=== PATIENT | female | born 1975 | race Caucasian/White ===

== ENCOUNTER 2021-03-22 14:15 | Emergency (ER) | payer OTHER ==
[2021-03-22] MEDS ORDERED: solu-MEDROL 125 MG, Sterile H2O 10 ml 2 ML IV ONE ×2 (14:20)
[2021-03-22] MEDS ORDERED: BENADRYL 50 MG/ML IV ONE (14:20)
[2021-03-22] MEDS ORDERED: Sodium Chloride 0.9% 1000 ML 1,000 ML IV STA (14:20)
[2021-03-22] MEDS ORDERED: Pepcid 20 MG VIAL IV ONE (14:20)
[2021-03-22] MEDS ORDERED: DUONEB 0.5-3 MG/3 ml Neb IH ONE (14:21)
[2021-03-22] MEDS ORDERED: Racepinephrine INH Solution 2.25% IH ONE (14:22)
[2021-03-22] MEDS ORDERED: Sodium Chloride 0.9% 1000 ML 1,000 ML ONE ×2 (14:37→19:52)
--- NOTE | 2021-03-22 14:46 | XRAY ---
Indication: Short of breath. Comparison: None Chest demonstrates normal heart and lungs with incidental tiny right base calcified granuloma. Bony thorax intact with mild degenerative changes.
[2021-03-22 14:50] LABS: Absolute Neutrophil Ct (ANC) 10.63 (1.4-6.9); BASOPHIL % 0.2 % (0.0-0.4); Basophil (Absolute #) 0.03 (0-0.4); Eosinophil % 0.8 % (0.00-5.0); Eosinophil (Absolute #) 0.13 (0-0.5); Hematocrit 41.9 % (35-47); Hemoglobin 13.3 gm/dl (12.0-16.0); Lymphocytes % 19.1 % (24.0-44.0); Mean Cell Volume 99.8 fl (78-100); Mean Corpuscular Hemoglobin 31.7 pg (26-32); Mean Corpuscular Hgb Concent. 31.7 g/dl (32-36); Mean Platelet Volume 10.7 fl (7.5-11.0); Monocyte (Absolute #) 1.88 (0.0-1.3); Neutrophil % 67.9 % (36.0-66.0); Platelet Count 282 K/mm3 (150-450); Red Cell Distribution Width 14.6 % (11.5-14.0); White Blood Count 15.7 K/mm3 (4.0-10.5)
[2021-03-22 15:03] LABS: ALBUMIN 4.5 g/dL (3.5-5.0); ALKALINE PHOSPHATASE 122 U/L (38-126); ANION GAP 17.7 MEQ/L (5-15); BLOOD UREA NITROGEN 12 mg/dL (7-17); CHLORIDE 104 mmol/L (98-107); Calcium 10.4 mg/dL (8.4-10.2); Carbon Dioxide 20 mmol/L (22-30); Creatinine 1 0.88 mg/dL (0.52-1.04); EST GLOMERULAR FILTRATION RATE > 60.0 ML/MIN; Glucose 136 mg/dL (74-106); Potassium 3.8 mmol/L (3.5-5.1); SGOT/AST 28 U/L (14-36); SGPT/ALT 16 U/L (0-35); SODIUM 138 mmol/L (137-145); Total Protein 7.6 g/dL (6.3-8.2)
--- NOTE | 2021-03-22 15:50 | ERPHSYRPT ---
- History of Present Illness Time Seen by Provider: 03/22/21 14:20 Source: patient Exam Limitations: no limitations Patient Subjective Stated Complaint: difficulty breathing and swallowing, pt went to clinic 3 days ago and was given some medication and today she states moraima t her throat is swollen Triage Nursing Assessment: Pt brought to the ER by her boyfriend, hypertensive, tachycardic, rates pain as 9/10 in her chest and neck, pulses normal, skin n/w/d, wheezing, difficulty speaking, breathing and swallowing Physician History: 45 years old female with history of tobacco abuse, COPD/asthma, hypertension presented in the ER with chief complaint of worsening shortness of breath for 2 days. Patient reports she was having sore throat 2 days ago and was evaluated outpatient, given albuterol inhaler and cough congestion medication and seems like her throat is more swollen with more congestion and having moderate to severe difficulty breathing because of throat closing sensation since morning. Patient is in mild to moderate distress on presentation and very anxious. Bilateral wheezing. Denies any tongue swelling or history of angioedema Timing/Duration: day(s) (3), constant, gradual onset, worse Activities at Onset: rest Severity of Dyspnea-Max: severe Severity of Dyspnea-Current: severe Associated Symptoms: cough, wheezing, painful breathing, tightness, No chest pain/discomfort Allergies/Adverse Reactions: No Known Drug Allergies Allergy (Verified 03/22/21 14:28) Home Medications: Albuterol 8 gm Mdi Hfa [Ventolin Hfa MDI] 18 gm IH .PRN 11/15/16 [History] Amlodipine Besylate 5 mg [Norvasc 5 mg] 5 mg PO DAILY 03/22/21 [History] Travel Risk - International Travel Have you traveled outside of the country in past 3 weeks: No - Coronavirus Screening Are you exhibiting any of the following symptoms?: No Close contact with a COVID-19 positive Pt in past 14-21 Days: No - Vaccine Status Have you recieved a Covid-19 vaccination: No - Review of Systems Constitutional: No Symptoms Eyes: No Symptoms Ears, Nose, & Throat: Nose Congestion, Sinus Drainage, Throat Pain, Throat Swelling, Painful Swallowing, Stridor Respiratory: Cough, Dyspnea, Stridor, Wheezing Cardiac: No Symptoms Abdominal/Gastrointestinal: No Symptoms Genitourinary Symptoms: No Symptoms Musculoskeletal: No Symptoms Skin: No Symptoms Neurological: No Symptoms Psychological: No Symptoms Endocrine: No Symptoms Hematologic/Lymphatic: No Symptoms Immunological/Allergic: No Symptoms - Past Medical History Pertinent Past Medical History: Yes Respiratory History: Asthma, COPD GI Medical History: Diverticulitis - Past Surgical History Past Surgical History: Yes Female Surgical History: Hysterectomy Other Surgical History: 3 back and neck surgeries - Social History Smoking Status: Current every day smoker Exposure to second hand smoke: Yes Drug Use: marijuana Patient Lives Alone: No - Female History Hx Now: (unkn) - Nursing Vital Signs Nursing Vital Signs: Initial Vital Signs Pulse Rate 116 H 03/22/21 14:15 Respiratory Rate 22 03/22/21 14:15 O2 Sat by Pulse Oximetry 100 03/22/21 14:15 Pain Scale Pain Intensity 0 - Physical Exam General Appearance: moderate distress, alert, anxiety Eye Exam: PERRL/EOMI, eyes nml inspection Ears, Nose, Throat Exam: sinus pain/drainage, pharyngeal erythema Neck Exam: normal inspection, full range of motion, lymphadenopathy (R), lymphadenopathy (L), No tenderness midline Respiratory Exam: wheezing, stridor Cardiovascular/Chest Exam: normal heart sounds, tachycardia Abdominal/Gastrointestinal Exam: soft, normal bowel sounds Extremity Exam: non-tender, normal range of motion Neurologic Exam: alert, oriented x 3, cooperative Skin Exam: normal color Lymphatic Exam: adenopathy SpO2 Interpretation: normal SpO2: 95 O2 Delivery: Room Air - Course EKG Interpreted by Me: RATE ([id number]), Sinus Tach, NORMAL AXIS, NORMAL INTERVALS, Non-specific ST Changes (Nonspecific T wave changes) Ordered Tests: Active Orders 24 hr Category Date Time Status Solution Design Engineer STAT Care 03/22/21 14:20 Active EKG-ER Only STAT Care 03/22/21 14:20 Active IV Insertion STAT Care 03/22/21 14:20 Active NPO (ED) STAT Care 03/22/21 18:30 Active Oxygen-ED Only Nasal Cannula 2 lpm Care 03/22/21 14:20 Active CHEST 1 VIEW (PORTABLE) Stat Exams 03/22/21 14:20 Completed NECK WITH CONTRAST [CT] Stat Exams 03/22/21 14:54 Completed CBC W DIFF Stat Lab 03/22/21 14:40 Completed CMP Stat Lab 03/22/21 14:40 Completed CULTURE,URINE Stat Lab 03/22/21 15:52 Received TROPONIN Q3H Lab 03/22/21 14:40 Completed TROPONIN Q3H Lab 03/22/21 18:06 Completed TROPONIN Q3H Lab 03/22/21 20:30 Ordered TROPONIN Q3H Lab 03/22/21 23:30 Ordered TROPONIN Q3H Lab 03/23/21 02:30 Ordered UA W/RFX UR CULTURE Stat Lab 03/22/21 15:52 Completed Respiratory Therapy Assessment ONCE RT 03/22/21 14:51 Active Medication Summary Generic Name Dose Route Start Last Admin Trade Name Freq PRN Reason Stop Dose Admin Ceftazidime 2 g/ Dextrose 100 mls @ 200 mls/hr 03/22/21 18:30 IV 04/21/21 18:29 Q8H AMANDA Sodium Chloride 1,000 mls @ 125 mls/hr 03/22/21 18:30 Sodium Chloride 0.9% 1000 Ml IV 04/21/21 18:29 .Q8H AMANDA Discontinued Medications Generic Name Dose Route Start Last Admin Trade Name Freq PRN Reason Stop Dose Admin Albuterol/Ipratropium 3 ml 03/22/21 14:21 03/22/21 14:50 Duoneb 0.5-3 Mg/3 Ml Neb IH 03/22/21 14:22 3 ml STAT ONE Administration Methylprednisolone Sodium 0 mg 03/22/21 14:20 03/22/21 14:45 Succinate 125 mg/ Sterile IV 03/22/21 14:21 125 mg Water 2 ml STAT ONE Administration Diphenhydramine HCl 25 mg 03/22/21 14:20 03/22/21 14:43 Benadryl 50 Mg/Ml IV 03/22/21 14:21 25 mg STAT ONE Administration Epinephrine 0.5 ml 03/22/21 14:22 03/22/21 14:51 Racepinephrine Inh Solution 2.25% IH 03/22/21 14:23 0.5 ml STAT ONE Administration Famotidine 20 mg 03/22/21 14:20 03/22/21 14:44 Pepcid 20 Mg Vial IV 03/22/21 14:21 20 mg STAT ONE Administration Sodium Chloride 1,000 mls @ 999 mls/hr 03/22/21 14:20 03/22/21 15:43 Sodium Chloride 0.9% 1000 Ml IV 03/22/21 15:20 Infused .Q1H1M STA Infusion Sodium Chloride Confirm 03/22/21 14:37 Sodium Chloride 0.9% 1000 Ml Administered 03/22/21 14:38 Dose 1,000 mls @ .ROUTE .K-MED ONE Lab/Rad Data: Laboratory Result Diagrams 03/22/21 14:40 03/22/21 14:40 Laboratory Results 03/22/21 03/22/21 03/22/21 Range/Units 18:06 16:44 15:52 WBC (4.0-10.5) K/mm3 RBC (4.1-5.4) M/mm3 Hgb (12.0-16.0) gm/dl Hct (35-47) % MCV (78-100) fl MCH (26-32) pg MCHC (32-36) g/dl RDW (11.5-14.0) % Plt Count (150-450) K/mm3 MPV (7.5-11.0) fl Gran % (36.0-66.0) % Eos # (Auto) (0-0.5) Absolute Lymphs (auto) (1.0-4.6) Absolute Monos (auto) (0.0-1.3) Lymphocytes % (24.0-44.0) % Monocytes % (0.0-12.0) % Eosinophils % (0.00-5.0) % Basophils % (0.0-0.4) % Absolute Granulocytes (1.4-6.9) Basophils # (0-0.4) Sodium (137-145) mmol/L Potassium (3.5-5.1) mmol/L Chloride (98-107) mmol/L Carbon Dioxide (22-30) mmol/L Anion Gap (5-15) MEQ/L BUN (7-17) mg/dL Creatinine (0.52-1.04) mg/dL Estimated GFR ML/MIN Glucose (74-106) mg/dL Calcium (8.4-10.2) mg/dL Total Bilirubin (0.2-1.3) mg/dL AST (14-36) U/L ALT (0-35) U/L Alkaline Phosphatase (38-126) U/L Troponin I < 0.012 (0.000-0.034) ng/mL Serum Total Protein (6.3-8.2) g/dL Albumin (3.5-5.0) g/dL Urine Color YELLOW (YELLOW) Urine Appearance CLEAR (CLEAR) Urine pH 7.0 (5-6) Ur Specific Marana 1.005 (1.005-1.025) Urine Protein NEGATIVE (Negative) Urine Ketones SMALL (NEGATIVE) Urine Blood MODERATE (0-5) Jose De Jesus/ul Urine Nitrite NEGATIVE (NEGATIVE) Urine Bilirubin NEGATIVE (NEGATIVE) Urine Urobilinogen NEGATIVE (0-1) mg/dL Ur Leukocyte Esterase LARGE (NEGATIVE) Urine WBC (Auto) 16-25 (0-5) /HPF Urine RBC (Auto) 0-2 (0-2) /HPF Urine Bacteria (Auto) RARE (NEGATIVE) /HPF Urine Mucus (Auto) SLIGHT (NEGATIVE) /HPF Urine Culture Reflexed YES (NO) Urine Glucose NEGATIVE (NEGATIVE) mg/dL SARS-CoV-2 (PCR) NEGATIVE (NEGATIVE) Group A Strep Antibody (NEGATIVE) Slides for Path Review 03/22/21 03/22/21 03/22/21 Range/Units 15:30 14:40 14:40 WBC (4.0-10.5) K/mm3 RBC (4.1-5.4) M/mm3 Hgb (12.0-16.0) gm/dl Hct (35-47) % MCV (78-100) fl MCH (26-32) pg MCHC (32-36) g/dl RDW (11.5-14.0) % Plt Count (150-450) K/mm3 MPV (7.5-11.0) fl Gran % (36.0-66.0) % Eos # (Auto) (0-0.5) Absolute Lymphs (auto) (1.0-4.6) Absolute Monos (auto) (0.0-1.3) Lymphocytes % (24.0-44.0) % Monocytes % (0.0-12.0) % Eosinophils % (0.00-5.0) % Basophils % (0.0-0.4) % Absolute Granulocytes (1.4-6.9) Basophils # (0-0.4) Sodium 138 (137-145) mmol/L Potassium 3.8 (3.5-5.1) mmol/L Chloride 104 (98-107) mmol/L Carbon Dioxide 20 L (22-30) mmol/L Anion Gap 17.7 H (5-15) MEQ/L BUN 12 (7-17) mg/dL Creatinine 0.88 (0.52-1.04) mg/dL Estimated GFR > 60.0 ML/MIN Glucose 136 H (74-106) mg/dL Calcium 10.4 H (8.4-10.2) mg/dL Total Bilirubin 0.60 (0.2-1.3) mg/dL AST 28 (14-36) U/L ALT 16 (0-35) U/L Alkaline Phosphatase 122 (38-126) U/L Troponin I < 0.012 (0.000-0.034) ng/mL Serum Total Protein 7.6 (6.3-8.2) g/dL Albumin 4.5 (3.5-5.0) g/dL Urine Color (YELLOW) Urine Appearance (CLEAR) Urine pH (5-6) Ur Specific Marana (1.005-1.025) Urine Protein (Negative) Urine Ketones (NEGATIVE) Urine Blood (0-5) Jose De Jesus/ul Urine Nitrite (NEGATIVE) Urine Bilirubin (NEGATIVE) Urine Urobilinogen (0-1) mg/dL Ur Leukocyte Esterase (NEGATIVE) Urine WBC (Auto) (0-5) /HPF Urine RBC (Auto) (0-2) /HPF Urine Bacteria (Auto) (NEGATIVE) /HPF Urine Mucus (Auto) (NEGATIVE) /HPF Urine Culture Reflexed (NO) Urine Glucose (NEGATIVE) mg/dL SARS-CoV-2 (PCR) (NEGATIVE) Group A Strep Antibody NOT DETECTED (NEGATIVE) Slides for Path Review 03/22/21 Range/Units 14:40 WBC 15.7 H (4.0-10.5) K/mm3 RBC 4.20 (4.1-5.4) M/mm3 Hgb 13.3 (12.0-16.0) gm/dl Hct 41.9 (35-47) % MCV 99.8 (78-100) fl MCH 31.7 (26-32) pg MCHC 31.7 L (32-36) g/dl RDW 14.6 H (11.5-14.0) % Plt Count 282 (150-450) K/mm3 MPV 10.7 (7.5-11.0) fl Gran % 67.9 H (36.0-66.0) % Eos # (Auto) 0.13 (0-0.5) Absolute Lymphs (auto) 3.00 (1.0-4.6) Absolute Monos (auto) 1.88 H (0.0-1.3) Lymphocytes % 19.1 L (24.0-44.0) % Monocytes % 12.0 (0.0-12.0) % Eosinophils % 0.8 (0.00-5.0) % Basophils % 0.2 (0.0-0.4) % Absolute Granulocytes 10.63 H (1.4-6.9) Basophils # 0.03 (0-0.4) Sodium (137-145) mmol/L Potassium (3.5-5.1) mmol/L Chloride (98-107) mmol/L Carbon Dioxide (22-30) mmol/L Anion Gap (5-15) MEQ/L BUN (7-17) mg/dL Creatinine (0.52-1.04) mg/dL Estimated GFR ML/MIN Glucose (74-106) mg/dL Calcium (8.4-10.2) mg/dL Total Bilirubin (0.2-1.3) mg/dL AST (14-36) U/L ALT (0-35) U/L Alkaline Phosphatase (38-126) U/L Troponin I (0.000-0.034) ng/mL Serum Total Protein (6.3-8.2) g/dL Albumin (3.5-5.0) g/dL Urine Color (YELLOW) Urine Appearance (CLEAR) Urine pH (5-6) Ur Specific Marana (1.005-1.025) Urine Protein (Negative) Urine Ketones (NEGATIVE) Urine Blood (0-5) Jose De Jesus/ul Urine Nitrite (NEGATIVE) Urine Bilirubin (NEGATIVE) Urine Urobilinogen (0-1) mg/dL Ur Leukocyte Esterase (NEGATIVE) Urine WBC (Auto) (0-5) /HPF Urine RBC (Auto) (0-2) /HPF Urine Bacteria (Auto) (NEGATIVE) /HPF Urine Mucus (Auto) (NEGATIVE) /HPF Urine Culture Reflexed (NO) Urine Glucose (NEGATIVE) mg/dL SARS-CoV-2 (PCR) (NEGATIVE) Group A Strep Antibody (NEGATIVE) Slides for Path Review YES - Progress Progress: improved Air Movement: fair Progress Note: 03/22/21 18:31 Patient was not mild to moderate distress on presentation with stridors and wheezing. Given racemic epi and DuoNeb along with Solu-Medrol/Benadryl and Pepcid. On reevaluation patient is feeling better but still have feeling of swelling in the throat with difficulty swallowing. She has a white count of 15 and bilateral enlarged neck nodes. I have obtained this CT scan soft tissue neck which showed 3.2 x 3.1 cm mass in the base of tongue/vallecula which is probably the reason for her throat closing sensation/difficulty swallowing. She needs to be evaluated by ENT. Do not have ENT services available here/Lisbeth Reyna/maria Morris, discussed with Dr. Wagoner at ENT, reviewed history, work-up and current status, patient is accepted for transfer to [facility] ER for further evaluation by ENT. She is made n.p.o. She is also given a dose of ceftazidime as well. Plan discussed with patient who understand and agrees with it. Blood Culture(s) Obtained: Yes Antibiotics given: Yes Discussed with Dr.: Other ([facility] ) - Departure Departure Disposition: Transfer Clinical Impression: Throat mass, Difficulty breathing Condition: Stable Critical Care Time: Yes Critical Care Time(excluding separately billable procedures): Critical 30-74 mins Referrals: DOCTOR,NO FAMILY [Primary Care Provider] -
[2021-03-22 16:14] LABS: Appearance CLEAR (CLEAR); Bacteria RARE /HPF (NEGATIVE); Bilirubin NEGATIVE (NEGATIVE); Blood MODERATE Ery/ul (0-5); Glucose NEGATIVE (NEGATIVE); Ketones SMALL (NEGATIVE); Leukocyte Esterase LARGE (NEGATIVE); Mucus SLIGHT /HPF (NEGATIVE); Nitrite NEGATIVE (NEGATIVE); Protein,Urine Dip NEGATIVE (Negative); RBC 0-2 /HPF (0-2); Specific Gravity 1.005 (1.005-1.025); Urobilinogen NEGATIVE mg/dL (0-1)
--- NOTE | 2021-03-22 16:27 | XRAY ---
Indication: Neck pain and swelling 3 days. Multiple contiguous axial images obtained through the neck using 80 cc of Isovue 370 contrast. Comparison: None There has been C4-C6 laminectomy with bilateral C3-C6 posterior facet screws/hooks/spinal rods producing beam artifact limiting these levels. Mild C6-C7 and T1-T3 degenerative disc space narrowing with endplate spurring. Straightening of the cervical lordosis, positional versus paraspinal spasm. Base of the tongue/vallecula demonstrates irregular soft tissue mass measuring at least 0.8 x 3.2 x 3.1 cm in greatest AP, transverse, and CC projections. Largest left cervical node measures 0.9 x 1.4 cm. Remaining supra and infraglottic airway widely patent. Parotid and submandibular glands are bilaterally symmetric. There are small cervical nodes bilaterally, largest on the right anterior to the jugular vein measuring 1.2 x 1.4 cm. Major arteries and veins are normal in course and caliber. Thyroid gland enhances homogeneously. Base of the brain and lung apices unremarkable. Impression: 1. C4-C6 laminectomy and C3-C6 posterior fusion with beam artifact from fusion hardware. 2. Irregular soft tissue mass base of the tongue/vallecula better evaluated with direct laryngoscopy. 3. Mildly prominent bilateral cervical lymph nodes. 4. Mild C6-C7 and T1-T3 degenerative changes.
[2021-03-22 16:31] LABS: Slide Review 1 YES
[2021-03-22] MEDS ORDERED: Sodium Chloride 0.9% 1000 ML 1,000 ML IV SCH (18:30)
[2021-03-22] MEDS ORDERED: Fortaz/Tazicef 1 GM** 2 G in D5w 100ML Mini Bag 100 ML 100 ML IV SCH (18:30)
[2021-03-22] MEDS ORDERED: Nicoderm CQ 21 MG TOP ONE (20:38)
[2021-03-22] MEDS ORDERED: Nicoderm CQ 21 MG ONE (20:38)
[2021-03-22 22:09] VITALS: O2SAT 98
[2021-03-22 23:07] VITALS: BP 116/73; PULSE 94
[2021-03-22] MEDS ORDERED: Zofran 4 MG/2 ML VIAL ONE (23:38)
[2021-03-22] MEDS ORDERED: Zofran 4 MG/2 ML VIAL IV ONE (23:39)
== END 2021-03-22 23:51 | disposition short-term general hospital (02) ==
LOC: ED 14:15
DX: R22.1 Localized swelling, mass and lump, neck (principal); R06.00 Dyspnea, unspecified
CPT/HCPCS: 36000; 36415; 70491; 71045; 80053; 81001; 84484; 85025; 87077; 87086; 87186; 87651; 93005; 93041; 94640; 96360; 96374; 96375; 99285; 99291; U0003; J0713; J1200; J2405; J2930; A9270-GY